=== PATIENT | female | born 2000 | race Two or more races ===

== ENCOUNTER 2022-01-29 15:03 | Emergency (ER) | payer OTHER ==
[~2022-01-29] VITALS: Ht 167.6 cm; Wt 56.7 kg
== END 2022-01-29 18:57 | disposition home or self-care (01) ==
LOC: ER 15:03
DX: R10.32 Left lower quadrant pain (principal)

== ENCOUNTER 2024-10-04 13:37 | Emergency (ER) | payer OTHER ==
[~2024-10-04] VITALS: Ht 170.2 cm; Wt 59.0 kg
[2024-10-04 14:03] VITALS: BP 115/74; O2SAT 100
[2024-10-04] MEDS ORDERED: ALDACTONE25 MG PO (14:03)
[2024-10-04] MEDS ORDERED: ATIVAN0.5 M1 PO (14:03)
[2024-10-04] MEDS ORDERED: CEFTRIAXONE SODIUM 1,000 MG VIAL IM ONE (14:30)
[2024-10-04] MEDS ORDERED: LIDOCAINE HCL 1% 10ML VIAL IJ ONE (14:30)
[2024-10-04] MEDS ORDERED: TETANUS & DIPHTHERIA TOX,ADULT 0.5 ML VIAL IM ONE (14:30)
[2024-10-04] MEDS ORDERED: DUI500 PO (14:52)
== END 2024-10-04 15:04 ==
LOC: ER 13:39
DX: S61.021A Laceration with foreign body of right thumb without damage to nail, initial encounter (principal); W26.0XXA Contact with knife, initial encounter; Y93.G3 Activity, cooking and baking; Y92.090 Kitchen in other non-institutional residence as the place of occurrence of the external cause

== ENCOUNTER → 2024-10-18 | Emergency (ER) | payer OTHER ==
[~2024-10-18] VITALS: Ht 170.2 cm; Wt 62.6 kg
[~2024-10-18] MED LIST: ALDACTONE25 MG PO; ATIVAN0.5 M1 PO; DUI500 PO
== END | disposition home or self-care (01) ==
LOC: ER 09:44
DX: Z48.02 Encounter for removal of sutures (principal)